=== PATIENT | male | born 1945 | race Caucasian/White ===

== ENCOUNTER 2017-08-24 08:15 | Inpatient (IN) | payer OTHER ==
[2017-08-24] VITALS (12 sets, daily range): BP systolic 115–147; BP diastolic 63–87
[~2017-08-24] VITALS: Ht 180.3 cm; Wt 88.5 kg
[~2017-08-24 08:15] MED LIST: AMLODIPINE BESY10 MG PO; HYZAAR 100-12.1 EACH PO; IBUPROFEN 400400 M2 PO; LIPITOR 20 MG T20 M1 PO; LODINE 200MG C200 M1 PO; METFORMIN HCL500 MG PO; NITROGLYCERIN0.4 MG SUBLING; OMEPRAZOLE 20 M20 MG PO; PIROXICAM20 MG PO; PLAVIX 75 MG TA75 M1 PO; VITAMIN B-12500 MCG PO
[2017-08-24 09:08] LABS: HEMATOCRIT 41.1 % (42.0-52.0); HEMOGLOBIN 14.7 gm/dL (14.0-18.0); MCH 33.5 pg (26.0-34.0); MCHC 35.8 g/dL (28.0-37.0); MCV 93.6 fL (80.0-100.0); MPV 7.9 fl. (7.2-11.1); RBC 4.39 mil/uL (4.50-6.00); RDW-CV 12.9 % (10.5-14.5); WBC 5.8 thou/uL (4.0-11.0)
[2017-08-24 09:24] LABS: INR 1.1; PROTIME 10.8 Seconds (9.20-11.50)
[2017-08-24 09:39] LABS: ANION GAP 9 mmol/L (7-16); BUN 16 mg/dL (7-18); CALCIUM 9.2 mg/dL (8.5-10.1); CHLORIDE 106 mmol/L (98-107); CO2 28 mmol/L (21-32); CREATININE 0.9 mg/dL (0.6-1.3); GLUCOSE 143 mg/dL (70-99); POTASSIUM 3.6 mmol/L (3.5-5.1); SODIUM 143 mmol/L (136-145)
[2017-08-24 09:44] LABS: ALBUMIN 3.8 g/dL (3.4-5.0); ALKALINE PHOSPHATASE 53 U/L (46-116); CHOLESTEROL 100 mg/dL (<200); HDL CHOLESTEROL 69 mg/dL (>40); LDL CHOLESTEROL 25 mg/dL (<100); SGOT 32 U/L (15-37); SGPT 47 U/L (30-65); TC:HDL 1.4 Ratio (Not establshd); TOTAL BILIRUBIN 1.1 mg/dL (<0.1-1.0); TOTAL PROTEIN 7.1 g/dL (6.4-8.2); TRIGLYCERIDE 33 mg/dL (<150); VLDL 7 mg/dL (<40)
[2017-08-24 09:47] LABS: SERUM ASSESSMENT Clear
--- NOTE | 2017-08-24 15:48 | EKG ---
[place] [address] ELECTROCARDIOGRAM REPORT Name: TOPHER HEDRICK Room: [address] IN .R.#: [id number] Admission: 08/24/17 Attend Phys: Miguel Temple MD, Discharge: Date of : 49 Report #: [id number] THIS REPORT FOR: //name// [facility] Test Date: 2017-08-24 Test Time: 08:57:46 Pat Name: TOPHER HEDRICK Department: Room: [facility] Gender: M Manager Quality Systems: [facility] : 1945 Requested By: Miguel Temple Order Number: [id number] Reading MD: Miguel Temple Measurements Intervals [place] Rate: 68 P: 19 MA: 182 QRS: 62 QRSD: 104 T: 57 QT: 401 QTc: 427 Interpretive Statements Sinus rhythm Probable left atrial enlargement Left ventricular hypertrophy Abnormal inferior Q waves Compared to ECG 06/16/2017 03:43:58 Left ventricular hypertrophy now present Inferior Q waves now present Q waves now present T-wave abnormality no longer present Electronically Signed On 08-24-2017 15:48:19 TRAWL NET MAKER by Miguel Temple [email or web address] <ELECTRONICALLY SIGNED> By: Miguel Temple MD, [facility] 08/24/17 1548 0857 0857 Miguel Temple MD, [facility] /EPI
--- NOTE | 2017-08-24 15:53 | EKG ---
[place] [address] ELECTROCARDIOGRAM REPORT Name: TOPHER HEDRICK Room: [address] ADM IN .R.#: [id number] Admission: 08/24/17 Attend Phys: Miguel Temple MD, Discharge: Date of : 49 Report #: [id number] THIS REPORT FOR: //name// [facility] Test Date: 2017-08-24 Test Time: 13:11:12 Pat Name: TOPHER HEDRICK Department: Room: [facility] Gender: M Professor Of Physics: [facility] : 1945 Requested By: Miguel Temple Order Number: [id number] Reading MD: Miguel Temple Measurements Intervals [place] Rate: 60 P: 42 WY: 191 QRS: 70 QRSD: 104 T: 73 QT: 432 QTc: 432 Interpretive Statements Sinus rhythm Probable left atrial enlargement Left ventricular hypertrophy Nonspecific T abnormalities, lateral leads Baseline wander in lead(s) V3 Compared to ECG 06/16/2017 03:43:58 Left ventricular hypertrophy now present T-wave abnormality still present Electronically Signed On 08-24-2017 15:53:44 COMMUNITY HEALTH EDUCATION COORDINATOR by Miguel Temple [email or web address] <ELECTRONICALLY SIGNED> By: Miguel Temple MD, FAC 08/24/17 1553 1311 1311 Miguel Temple MD, [facility] /EPI
--- NOTE | 2017-08-24 19:54 | NUR ---
PT ARRIVED TO ROOM 201 AT APPROX 1230 FROM STERILISATION TECHNICIAN. PT INSTRUCTED TO LAY FLAT, VSS, SR ON THE MONITOR. PT HAD LOVE IN PLACE, C/O PAIN FROM LOVE, REQUESTED IT REMOVED. LOVE REMOVED, PT ABLE TO URINE USING THE URINAL. PT UP AT APPROX 1800, RIGHT GROIN INTACT, NO BLEEDING OR HEAMTOMA. PT A/O X4, USING CALL LIGHT APPROPRILATY. REPORT GIVEN TO JULY CARY,
[2017-08-25] VITALS: BP 119/57
--- NOTE | 2017-08-25 02:27 | NUR ---
ASSUMED CARE OF PT AT 1900. PT IS ALERT AND ORIENTED. VSS. PERRLA. NO COMPLAINTS OF PAIN. STEADY GAIT. RIGHT GROIN SITE DRESSING IS CLEAN, DRY AND INTACT. NO SIGNS OR SYMPTOMS OF BLEEDING. PT IS IN SINUS RYTHM ON THE TELEMETRY. PT IS RESTING COMFORTABLY IN BED. RESPIRATIONS ARE EVEN AND NONLABORED. WILL CONTINUE TO MONITOR PT.
[2017-08-25 04:00] VITALS: BP 134/71
[2017-08-25 05:02] LABS: HEMATOCRIT 38.3 % (42.0-52.0); HEMOGLOBIN 13.4 gm/dL (14.0-18.0); MCH 33.2 pg (26.0-34.0); MCHC 35.1 g/dL (28.0-37.0); MCV 94.8 fL (80.0-100.0); MPV 7.8 fl. (7.2-11.1); RBC 4.04 mil/uL (4.50-6.00); RDW-CV 12.9 % (10.5-14.5); WBC 6.1 thou/uL (4.0-11.0)
[2017-08-25 05:43] LABS: CALCIUM 8.5 mg/dL (8.5-10.1); CREATININE 0.9 mg/dL (0.6-1.3); POTASSIUM 3.6 mmol/L (3.5-5.1); TROPONIN-I LEVEL 0.26 ng/mL (<0.06)
[2017-08-25 07:45] VITALS: BP 147/72
[2017-08-25 08:10] VITALS: BP 132/60
--- NOTE | 2017-08-25 09:17 | H ---
[address] [address] HISTORY AND PHYSICAL Name: RYLEYTOPHER L Room: [address] IN [facility]#: [id number] Admission: 08/24/17 Attend Phys: Miguel Temple MD, Discharge: Date of : 49 Report #: [id number] THIS REPORT FOR: //name// CC: Neal Temple DATE OF SERVICE: 08/24/2017 HISTORY OF PRESENT ILLNESS: The patient is a pleasant 72-year-old male with coronary artery disease, approximately 2 months status post stenting of the right coronary artery. He has experienced recurrent chest discomfort and had an abnormal stress test with inducible inferior ischemia. He underwent stenting of high grade proximal and heavily calcified right coronary stenosis in June. He was also noted to have approximately 80% mid LAD stenosis at that time, which was not approached in that setting. He has been continued on antiplatelet therapy with Plavix as well as amlodipine, atorvastatin, losartan/hydrochlorothiazide, metformin, nitroglycerin, omeprazole and Feldene. PAST MEDICAL HISTORY: Remarkable for left carotid stenosis, hypertension, hypercholesterolemia and non-insulin dependent diabetes. SOCIAL HISTORY: The patient is . He is a former smoker. FAMILY HISTORY: Remarkable for heart disease in his father. PHYSICAL EXAMINATION: GENERAL: Demonstrates not acutely distressed elderly male. VITAL SIGNS: Blood pressure is 150/70, pulse rate is 68 and respirations are 18 per minute. NECK: Jugular venous pressure is normal. CHEST EXAMINATION: Clear. CARDIAC EXAMINATION: Reveals normal first and second heart sounds, with a soft systolic murmur. ABDOMEN: Mildly obese. EXTREMITIES: Without edema with intact femoral, pedal and radial pulses. LABORATORY DATA: Electrocardiogram demonstrated sinus rhythm with minor interventricular conduction delay. IMPRESSION: 1. Recurrent unstable angina. 2. Abnormal stress test. 3. Multiv[place] [address] HISTORY AND PHYSICAL Name: TOPHER HEDRICK Angy Room: [address]#: [id number] Admission: 08/24/17 Attend Phys: Miguel Temple MD, Discharge: Date of : 49 Report #: [id number] 4. Left carotid disease. 5. Hypertension. 6. Hypercholesterolemia. 7. Type 2 diabetes. RECOMMENDATIONS: Given the aforementioned clinical scenario, I would recommend repeat cardiac catheterization with consideration of intervention to the right coronary artery and LAD after reviewing the cineangiograms. This has been discussed with the patient and family. <ELECTRONICALLY SIGNED> By: Miguel Temple MD, FACC 08/25/17 0917 1207 1243Jodanya Temple MD, FACC /nt
--- NOTE | 2017-08-25 10:00 | NUR ---
ASSUMED PT CARE 0730. PT A/O X'S 4. NO C/O PAIN. RIGHT GROIN CLEAN, DRY, INTACT, NO HEMATOMA. VSS. RIGHT GROIN SORE. PT UP AD UZIEL. PT ANXIOUS TO GO HOME.
--- NOTE | 2017-08-25 10:10 | CARD ---
[address] [address] CARDIAC CATH REPORT Name: RYLEYTOPHER Angy Room: [address] IN [facility]#: [id number] Admission: 08/24/17 Attend Phys: Miguel Temple MD, Discharge: Date of : 49 Report #: [id number] THIS REPORT FOR: //name// APPROVED REPORT Patient Details Patient Status: Out-Patient Room #: 201 The patient is a 72 year-old male Event Personnel Miguel Temple Personal Lines Appraiser, Elaine Breen RN Journeyman Level Acoustic Analyst, Janel Mckinney RTR Scrub, Chavez Kendall (R) Monitor Procedures Performed DARRIUS Place w/wo Plasty Single LAD DARRIUS Place w/wo Plasty Single RCA Indication Unstable angina , Positive stress test Risk Factors Hypercholesterolemia, Hypertension Previous Procedures/Diagnoses Previous PCI Admission/Lab Medications/Medications given during procedure Aspirin, Platelet Aff. Inhib., Angiomax bolus and infusion Procedure Narrative The patient was brought electively to the Cardiac Catheterization Laboratory and was prepped and draped in a sterile manner. The right femoral was infiltrated with 1% Lidocaine subcutaneous anesthesia. A [place] 6 FR sheath was inserted into the Right Femoral Artery. Coronary angiography was performed using coronary diagnostic catheters. The right coronary system was accessed and visualized with a Diagnostic JR4 catheter. The left coronary system was accessed and visualized with a Diagnostic JL4 catheter. Left ventricular/Aortic Valve gradient assessed via catheter pullback. Pre-demployment femoral angiogram was performed . Closure device was deployed with a Fr Angioseal. The patient tolerated the procedure well and there were no complications associated with the procedure. [place] [address] CARDIAC CATH REPORT Name: TOPHER HEDRICK Room: [address]#: [id number] Admission: 08/24/17 Attend Phys: Miguel Temple MD, Discharge: Date of : 49 Report #: [id number] Intraoperative Conscious Sedation Sedation start time: 9:59 Case end Time: 11:48 Fentanyl 200 mcg Versed 6.0 mg Fluoro Time: 32.7 minutes Dose: DAP [id number] cGycm2 3449 mGy Contrast Type and Amount: Visipaque 450 ml Diagnostic Cath Left Main 0% narrowing LAD 80% mid LAD calcified stenosis Circumflex 30% distal narrowing, this being a nondominant vessel Right Coronary Dominant vessel with a patent mid right coronary stent followed by an area of lucency suggesting thrombus with 75% narrowing Left Ventriculography Left Ventriculography was not performed. Hemodynamics The aortic pressure is 125/65 mmHg with a mean of 92 mmHg. The left ventricular pressure is 119/3 mmHg with a mean of mmHg. The left ventricular end diastolic pressure is 7 mmHg. There was no gradient across the aortic valve upon pullback. PCI Technique Lesion Anticoagulation was achieved with Angiomax. Patient was preloaded with Angiomax IV 13.5 ml. Percutaneous coronary intervention was performed on the mid right coronary artery. The lesion stenosis prior to intervention was 75% with DEL 3 flow. A 6FR XBRCA Guide Catheter was used to engage the ostium. A IG: ProwaterFlex 180CM Interventional Guidewire was used to cross the lesion. BALLOON DILATION A Balloon catheter Trek RX 2.5 X 12 was inserted and inflated up to 16.00atm for 15seconds. STENT DEPLOYMENT A drug-eluting stent Xience Alpine RX 3.0X18 was inserted and inflated up to 16atm for 15seconds. POST STENT DEPLOYMENT BALLOON DILATION A Balloon catheter NC Trek RX 3.0 X 8 was inserted and inflated up to 20atm [place] 15[place]. [place] [address] CARDIAC CATH REPORT Name: TOPHER HEDRICK Room: [address]#: [id number] Admission: 08/24/17 Attend Phys: Miguel Temple MD, Discharge: Date of : 49 Report #: [id number] Final angiography reveals 10 % stenosis with DEL 3 flow. COMMENTS There was local thrombus at the site prior to the intervention; this was no longer evidenced after the intervention BALLOON DILATION A Balloon catheter was inserted and inflated up to 14.00atm for 12seconds. Additional Inflation: 16.00atm for 14seconds. Additional Inflation: 16.00atm for 14seconds. STENT DEPLOYMENT A drug-eluting stent Xience Alpine RX 3.0X18 was inserted and inflated up to 12.00atm for 17seconds. Additional Inflation: 15.00atm for 14seconds. Additional Inflation: 16.00atm for 16seconds. POST STENT DEPLOYMENT BALLOON DILATION A Balloon catheter NC Trek RX 3.0 X 8 was inserted and inflated up to 18.00atm for 14seconds. Additional Inflation: 18.00atm for 12seconds. Additional Inflation: 20.00atm for 13seconds. PCI Technique Lesion 2 Percutaneous Coronary Intervention was performed on the mid left anterior descending artery segment. Patient was preloaded with Angiomax IV 13.5 ml. Percutaneous coronary intervention was performed on the mid left anterior descending artery segment. The lesion stenosis prior to intervention was 80% with DEL 3 flow. A 6FR XB 3.5 100CM Guide Catheter was used to engage the ostium. A IG: ProwaterFlex 180CM Interventional Guidewire was used to cross the lesion. Balloon Dilation A Balloon catheter Trek RX 2.5 X 12 was inserted and inflated up to 12.00atm for 17seconds. Additional Inflation: 16.00atm for 17seconds. Stent Deployment A drug-eluting stent Xience Alpine RX 2.75X15 was inserted and inflated up to 10.00atm for 15seconds. Additional Inflation: 14atm for 12seconds. Final angiography reveals 0 % stenosis with DEL [address] [address] CARDIAC CATH REPORT Name: TOPHER HEDRICK Room: [address] IN ..#: [id number] Admission: 08/24/17 Attend Phys: Miguel Temple MD, Discharge: Date of : 49 Report #: [id number] Conclusion #1 significant coronary artery disease characterized by the following: A 80% calcified mid LAD stenosis, B 30% narrowing of the distal portion of the nondominant circumflex, C dominant right coronary artery with widely patent mid right coronary stent and followed by an area of lucency suggesting thrombus with 75% narrowing #2 normal left-sided hemodynamics study #3 successful percutaneous coronary intervention deploying a drug-eluting stent at site of 80% calcified mid LAD stenosis with 0% residual narrowing and DEL-3 flow the distal vessel, #4 successful percutaneous coronary intervention of the site of 75% mid right coronary stenosis with local thrombus at the site with 10% residual narrowing following stent deployment and DEL-3 flow the distal vessel no residual thrombus. Recommendations Cardiac Risk Reduction Program Aggressive Medical Therapy Medications Administered Aspirin (any) Prasugrel <ELECTRONICALLY SIGNED> By: Miguel Temple MD, FACC 08/25/17 1010 1010 1010Miguel Temple MD, FACC /INF
[2017-08-25 10:30] VITALS: BP 147/72
[2017-08-25] MEDS ORDERED: EFFIENT10 MG PO (11:12)
--- NOTE | 2017-08-25 12:30 | NUR ---
RECEIVED DISCHARGE ORDERS. IV AND GLASS SELECTOR DC'D. PT EDUCATED ON F/U APPOINTMENTS WITH CARDIOLOGY. PT CONCERNED WITH COSE OF ELIQUIS. CM REFERRED AND GAVE PT NIKI FORM TO HELP WITH PAY. PT REPORTS WILL TRY TO GET MED THROUGH PCP TO GO THROUGH MAIL IN ORDER PHARMACY. PT EDUCATED ON NEW MEDICATION. CARE NOTES PRINTED AND GIVEN TO PT.
--- NOTE | 2017-08-25 14:46 | EKG ---
[place] [address] ELECTROCARDIOGRAM REPORT Name: TOPHER HEDRICK Room: [address] IN [facility]#: [id number] Admission: 08/24/17 Attend Phys: Miguel Temple MD, Discharge: 08/25/17 Date of : 49 Report #: [id number] THIS REPORT FOR: //name// [facility] Test Date: 2017-08-25 Test Time: 08:43:32 Pat Name: TOPHER HEDRICK Department: Room: [facility] Gender: M Business Case Analyst: : 1945 Requested By: Miguel Temple Order Number: [id number] Reading MD: Zeyad Luna Measurements Intervals [place] Rate: 72 P: 52 WY: 175 QRS: 84 QRSD: 104 T: 72 QT: 398 QTc: 436 Interpretive Statements Sinus rhythm Borderline right axis deviation Probable left ventricular hypertrophy Nonspecific T abnormalities, lateral leads Baseline wander in lead(s) II,aVR,aVF,V2 Compared to ECG 08/24/2017 13:11:12 No significant changes Electronically Signed On 08-25-2017 14:45:56 DIRECTOR SMB SALES by Zeyad Luna [email or web address] <ELECTRONICALLY SIGNED> By: Zeyad Luna MD, FAC 08/25/17 1445 0843 0843 Zeyad Luna MD, FAC /EPI
--- NOTE | 2017-09-18 12:57 | D ---
[address] [address] DISCHARGE SUMMARY Name: TOPHER HEDRICK Room: [address] IN M.R.#: [id number] Admission: 08/24/17 Attend Phys: Miguel Temple MD, Discharge: 08/25/17 Date of : 49 Report #: [id number] THIS REPORT FOR: //name// CC: Neal Temple DATE OF SERVICE: 08/25/2017 FINAL DISCHARGE DIAGNOSES: 1. Unstable angina. 2. Abnormal nuclear stress test. 3. Coronary artery disease. 4. Status post prior percutaneous coronary intervention to the right coronary artery and percutaneous coronary intervention to the left anterior descending and mid right coronary artery on 08/24/2017. 5. Left carotid stenosis. 6. Hypertension. 7. Hyperlipoproteinemia. 8. Mild type 2 diabetes. PROCEDURES: 08/24/2017-left heart catheterization, selective coronary arteriography and percutaneous coronary intervention with deployment of drug-eluting stent at site of 80% calcified mid LAD stenosis and placement of a drug-eluting stent at the site of 75% mid right coronary artery stenosis with minimal thrombus noted at the edge of a previously deployed stent. The patient is a 72-year-old male with coronary artery disease, status post prior percutaneous coronary interventions. He presented with unstable angina. There is underlying hypertension and hyperlipoproteinemia. He had undergone a prior stenting of the right coronary artery. Recent stress test suggested a modest inducible ischemia. Given this data, I elected to proceed with recatheterization on 08/24/2017, which revealed 80% calcified mid LAD stenosis with 75% mid right coronary artery stenosis beyond the previously deployed stent with suggestion of thrombus just distal to the stent. I deployed one drug-eluting stent in the mid LAD and one in the mid right coronary artery with a 10% residual narrowing of the right coronary artery and 0% of the LAD with DEL 3 flow to both distal circulations. There was an inconsequential increase in troponin to 0.26 post procedurally. Hemoglobin was 13.4, white blood cell count 6100 with 166,000 platelets. Sodium 142, potassium 3.6, BUN 12, and creatinine 0.9. The patient ambulated in the hallways without difficulty and there was good hemostasis at the right femoral site of catheterization. The patient was discharged to home in stable condition on 08/25/2017, [place] [address] DISCHARGE SUMMARY Name: TOPHER HEDRICK Room: [address]#: [id number] Admission: 08/24/17 Attend Phys: Miguel Temple MD, Discharge: 08/25/17 Date of : 49 Report #: [id number] following medications: Amlodipine 10 mg daily, atorvastatin 20 mg daily, cyanocobalamin 500 mcg daily, losartan/hydrochlorothiazide 100/12.5 one tablet daily, metformin 500 mg b.i.d. to be resumed on 08/27/2017, piroxicam 20 mg daily, and prasugrel or Effient 10 mg daily with a 60 mg dose given periprocedurally. Additional medicines include Lodine 200 mg on a p.r.n. basis, ibuprofen 400 mg on a p.r.n. basis for arthritic discomfort, and p.r.n. sublingual nitroglycerin. The patient is scheduled to return to see my nurse practitioner, Marija Pleitez on 09/01/2017, at 1400 and myself on 09/26/2017, at 11:20. He is discharged to home in stable condition on the aforementioned medications with followup as iterated above. <ELECTRONICALLY SIGNED> By: Miguel Temple MD, FACC 09/18/17 1257 0909 1031Jodanya Temple MD, FACC /nt
== END 2017-08-25 13:35 | disposition home or self-care (01) | DRG 247 ==
LOC: M.CL 08:15 → M.TBA-CV 12:12 → M.2W 12:12
PROVIDERS: ADMIT Internal Medicine
PROC: B211YZZ Fluoroscopy of Multiple Coronary Arteries using Other Contrast (ICD-10-PCS; principal; 2017-08-25)
PROC: 027135Z Dilation of Coronary Artery, Two Arteries with Two Drug-eluting Intraluminal Devices, Percutaneous Approach (ICD-10-PCS; principal; 2017-08-25)
PROC: 4A023N7 Measurement of Cardiac Sampling and Pressure, Left Heart, Percutaneous Approach (ICD-10-PCS; principal; 2017-08-25)
DX: I25.110 Atherosclerotic heart disease of native coronary artery with unstable angina pectoris (principal); I65.22 Occlusion and stenosis of left carotid artery; I10 Essential (primary) hypertension; E78.5 Hyperlipidemia, unspecified; E11.9 Type 2 diabetes mellitus without complications; Z82.49 Family history of ischemic heart disease and other diseases of the circulatory system; Z87.891 Personal history of nicotine dependence

== ENCOUNTER 2018-09-28 08:06 | Observation (INO) | payer OTHER ==
[2018-09-28] VITALS (22 sets, daily range): BP systolic 116–144; BP diastolic 67–88
[~2018-09-28] VITALS: Ht 180.3 cm; Wt 90.7 kg
[~2018-09-28 08:06] MED LIST changes: +EFFIENT10 MG PO
[2018-09-28 08:40] LABS: HEMATOCRIT 44.1 % (42.0-52.0); HEMOGLOBIN 15.4 gm/dL (14.0-18.0); MCH 32.7 pg (26.0-34.0); MCV 93.5 fL (80.0-100.0); MPV 7.6 fl. (7.2-11.1); RBC 4.72 mil/uL (4.50-6.00); RDW-CV 12.7 % (10.5-14.5); WBC 6.5 thou/uL (4.0-11.0)
[2018-09-28 08:55] LABS: ANION GAP 10 mmol/L (7-16); APTT 26.5 Seconds (25.0-31.3); BUN 12 mg/dL (7-18); CALCIUM 9.6 mg/dL (8.5-10.1); CHLORIDE 102 mmol/L (98-107); CO2 29 mmol/L (21-32); CREATININE 1.1 mg/dL (0.6-1.3); GLUCOSE 135 mg/dL (70-99); POTASSIUM 3.8 mmol/L (3.5-5.1); PROTIME 10.5 Seconds (9.20-11.50); SODIUM 141 mmol/L (136-145)
[2018-09-28 08:59] LABS: ALKALINE PHOSPHATASE 59 U/L (46-116); CHOLESTEROL 109 mg/dL (<200); HDL CHOLESTEROL 75 mg/dL (>40); LDL CHOLESTEROL 17 mg/dL (<100); SGOT 38 U/L (15-37); SGPT 58 U/L (30-65); TC:HDL 1.5 Ratio (Not establshd); TOTAL BILIRUBIN 1.2 mg/dL (<0.1-1.0); TOTAL PROTEIN 7.5 g/dL (6.4-8.2); TRIGLYCERIDE 85 mg/dL (<150); VLDL 17 mg/dL (<40)
[2018-09-28 09:00] LABS: SERUM ASSESSMENT Clear
[2018-09-28] MEDS ORDERED: METFORMIN HCL500 MG PO (09:16)
[2018-09-28] MEDS ORDERED: GLUCOPHAGE1000 MG PO (09:17)
[2018-09-28] MEDS ORDERED: COQ-10100 MG PO (09:18)
[2018-09-28] MEDS ORDERED: PRILOSEC 20 MG20 MG PO (09:19)
--- NOTE | 2018-09-28 15:36 | EKG ---
[place] [address] ELECTROCARDIOGRAM REPORT Name: TOPHER HEDRICK Room: [address] M.R.#: [id number] Admission: 09/28/18 Attend Phys: Miguel Temple MD, Discharge: Date of : 49 Report #: [id number] THIS REPORT FOR: //name// [facility] Test Date: 2018-09-28 Test Time: 09:14:23 Pat Name: TOPHER HEDRICK Department: Room: [facility] Gender: M Customs Import Specialist: : 1945 Requested By: Miguel Temple Order Number: [id number] Jaren MD: Miguel Temple Measurements Intervals [place] Rate: 73 P: 15 ND: 172 QRS: 76 QRSD: 101 T: 45 QT: 401 QTc: 442 Interpretive Statements Sinus rhythm Probable left atrial enlargement Compared to ECG 08/25/2017 08:43:32 T-wave abnormality no longer present Electronically Signed On 09-28-2018 15:35:49 COST MANAGER by Miguel Temple [email or web address] <ELECTRONICALLY SIGNED> By: Miguel Temple MD, [facility] 09/28/18 1535 3 3 Miguel Temple MD, FAC /EPI
--- NOTE | 2018-09-28 15:38 | EKG ---
[place] [address] ELECTROCARDIOGRAM REPORT Name: TOPHER HEDRICK Room: [address] M.R.#: [id number] Admission: 09/28/18 Attend Phys: Miguel Temple MD, Discharge: Date of : 49 Report #: [id number] THIS REPORT FOR: //name// [facility] Test Date: 2018-09-28 Test Time: 12:04:38 Pat Name: TOPHER HEDRICK Department: Room: [facility] Gender: M Debt Collector: : 1945 Requested By: Miguel Temple Order Number: [id number] Jaren MD: Miguel Temple Measurements Intervals [place] Rate: 66 P: 35 CT: 178 QRS: 67 QRSD: 103 T: 80 QT: 408 QTc: 428 Interpretive Statements Sinus rhythm Probable left atrial enlargement Left ventricular hypertrophy Compared to ECG 08/25/2017 08:43:32 T-wave abnormality no longer present Electronically Signed On 09-28-2018 15:38:26 MAMMOGRAPHY TECH by Miguel Temple [email or web address] <ELECTRONICALLY SIGNED> By: Miguel Temple MD, [facility] 09/28/18 1538 1204 1204 Miguel Temple MD, [facility] /EPI
--- NOTE | 2018-09-28 16:04 | CARD ---
[address] [address] CARDIAC CATH REPORT Name: TOPHER HEDRICK Room: [address] Melanie M.RScarlet#: [id number] Admission: 09/28/18 Attend Phys: Miguel Temple MD, Discharge: Date of : 49 Report #: [id number] THIS REPORT FOR: //name// APPROVED REPORT Study performed: 09/28/2018 09:31:21 Patient Details Patient Status: OP Room #: The patient is a 73 year-old male Event Personnel Miguel Temple Sales Attendant, Babita Avina RN Gate Tender, Carmen Ahumada Monitor, Darrel Schreiber Scrub Procedures Performed Art Access - R femoral artery* , [facility] [id number] [facility] w/wo Plasty Single RCA [id number] , Left Ventriculogram Indication Unstable angina Risk Factors Hypercholesterolemia, Hypertension, Diabetes Previous Procedures/Diagnoses Previous PCI Admission/Lab Medications/Medications given during procedure Platelet Aff. Inhib., Angiomax bolus and infusion Procedure Narrative The patient was brought electively to the Cardiac Catheterization Laboratory and was prepped and draped in a sterile manner. The right femoral was infiltrated with 2% Lidocaine subcutaneous anesthesia. A [place] 6 FR sheath was inserted into the right femoral artery. Coronary angiography was performed using coronary diagnostic catheters. The right coronary system was accessed and visualized with a 6fr JR 4 catheter. The left coronary system was accessed and visualized with a 6fr JL 4 catheter. The left ventricle was accessed and visualized with a 6fr Pigtail catheter. Left ventricular/Aortic Valve gradient assessed via catheter pullback. Left ventriculogram was performed in NARANJO projection. Pre-[place] [address] CARDIAC CATH REPORT Name: TOPHER HEDRICK Room: [address]#: [id number] Admission: 09/28/18 Attend Phys: Miguel Temple MD, Discharge: Date of : 49 Report #: [id number] was performed . Closure device was deployed with a 6 Fr Angioseal STS 6Fr. The patient tolerated the procedure well and there were no complications associated with the procedure. There was no hematoma. Intraoperative Conscious Sedation Sedation start time: 10:02 Case end Time: 11:20 Fentanyl 50 mcg Versed 4 mg Fluoro Time: 23.4 minutes Dose: DAP 277099 cGycm2 2499.46 mGy Contrast Type and Amount: Visipaque 300 ml Coronary Angiography The patient's coronary anatomy is right dominant. Diagnostic Cath Left Main 0% narrowing LAD 30% proximal narrowing with widely patent mid LAD stent Circumflex 30% proximal and distal circumflex narrowings Right Coronary 90% mid right coronary artery in-stent restenosis with 50% narrowing of the midportion of the posterior descending branch Left Ventriculography The left ventricle is normal in size with normal contractility. The left ventricular ejection fraction is estimated to be 65%. Left ventricular wall motion abnormalities are not present. There is no mitral insufficiency. Hemodynamics The aortic pressure is 121/54 mmHg with a mean of mmHg. The left ventricular pressure is 112/8 mmHg with a mean of mmHg. The left ventricular end diastolic pressure is 6 mmHg. There was no gradient across the aortic valve upon pullback. Pullback from the left ventricle to the aorta revealed no gradient across the aortic valve. PCI Technique Lesion Anticoagulation was achieved with Angiomax. Patient was preloaded with Angiomax IV 15.5 mg per kg. Percutaneous coronary intervention was performed on the mid right coronary artery. The lesion stenosis prior to intervention was 90% with DEL 3 flow. A 6FR XBRCA Guide Catheter was used to engage the RCA ostium. A IG: [facility] [address] [address] CARDIAC CATH REPORT Name: TOPHER HEDRICK Room: [address]#: [id number] Admission: 09/28/18 Attend Phys: Miguel Temple MD, Discharge: Date of : 49 Report #: [id number] Interventional Guidewire was used to cross the lesion. BALLOON DILATION A Balloon catheter Mini Trek RX 1.5 X 12 was inserted and inflated up to 16.00atm for 14seconds. Additional Inflation: 18.00atm for 14seconds. STENT DEPLOYMENT A drug-eluting stent Bruce RX Stent 2.5X15mm was inserted and inflated up to 16atm for 15seconds. POST STENT DEPLOYMENT BALLOON DILATION A Balloon catheter NC Trek RX 3.0 X 12 was inserted and inflated up to 18atm for 10seconds. Final angiography reveals 10 % stenosis with DEL 3 flow. COMMENTS Intervention was complex by virtue of marked calcification and decreased compliance throughout the right coronary artery requiring significant lesion preparation and multiple wires including a cali wire for stent positioning BALLOON DILATION A Balloon catheter was inserted and inflated up to 18.00atm for 19seconds. Additional Inflation: 18.00atm for 15seconds. PCI Technique Lesion Percutaneous coronary intervention was performed on the mid right coronary artery. BALLOON DILATION A Balloon catheter NC Trek RX 2.5 X 12 was inserted and inflated up to 18.00atm for 13seconds. Additional Inflation: 20.00atm for 11seconds. Additional Inflation: 22.00atm for 11seconds. STENT DEPLOYMENT A drug-eluting stent [place] RX Stent 2.5X15mm was inserted and inflated up to 14.00atm for 14seconds. Additional Inflation: 17.00atm for 12seconds. POST STENT DEPLOYMENT BALLOON DILATION A Balloon catheter NC Trek RX 2.75 X 12 was [place] [address] CARDIAC CATH REPORT Name: TOPHER HEDRICK Room: [address] Melanie Alvarez#: [id number] Admission: 09/28/18 Attend Phys: Miguel Temple MD, Discharge: Date of : 49 Report #: [id number] to 16.00atm for 15seconds. Additional Inflation: 20.00atm for 14seconds. PCI Technique Lesion Percutaneous coronary intervention was performed on the mid right coronary artery. POST STENT DEPLOYMENT BALLOON DILATION A Balloon catheter NC Trek RX 3.0 X 12 was inserted and inflated up to 16.00atm for 15seconds. Additional Inflation: 18.00atm for 12seconds. Conclusion #1 significant coronary artery disease characterized by the following A 30% proximal LAD narrowing with widely patent mid LAD stent B 30% proximal and distal circumflex narrowings C dominant right coronary artery with 90% mid vessel in-stent restenosis and 50% posterior descending branch narrowing #2 normal left ventricular systolic function, estimate ejection fraction being 65% #3 normal left-sided hemodynamics study #4 successful percutaneous coronary intervention with deployment of drug-eluting stent at site of 90% mid right coronary in-stent restenosis with 10% residual narrowing and DEL-3 flow the distal vessel Recommendations Cardiac Risk Reduction Program Aggressive Medical Therapy Medications Administered Prasugrel Diagnostic Cath Approved by: Miguel Temple MD Date/Time: 09/28/2018 16:00:17 <ELECTRONICALLY SIGNED> By: Miguel Temple MD, [facility] 09/28/18 1604 1604 1604Miguel Temple MD, FACC /INF
[2018-09-29] VITALS: BP 126/59
[2018-09-29 04:00] VITALS: BP 127/70
[2018-09-29 06:15] LABS: HEMATOCRIT 39.6 % (42.0-52.0); HEMOGLOBIN 14.1 gm/dL (14.0-18.0); MCH 33.1 pg (26.0-34.0); MCHC 35.6 g/dL (28.0-37.0); MCV 92.9 fL (80.0-100.0); MPV 7.9 fl. (7.2-11.1); RBC 4.27 mil/uL (4.50-6.00); RDW-CV 12.9 % (10.5-14.5); WBC 6.5 thou/uL (4.0-11.0)
[2018-09-29 06:43] LABS: ALBUMIN 3.3 g/dL (3.4-5.0); CALCIUM 8.7 mg/dL (8.5-10.1); POTASSIUM 3.6 mmol/L (3.5-5.1); TOTAL BILIRUBIN 0.9 mg/dL (<0.1-1.0); TOTAL PROTEIN 6.3 g/dL (6.4-8.2); TROPONIN-I LEVEL 0.36 ng/mL (<0.06)
[2018-09-29 09:00] VITALS: BP 145/70
[2018-09-29 10:23] VITALS: BP 136/67
[2018-09-29 11:18] VITALS: BP 136/67
--- NOTE | 2018-09-30 15:50 | D ---
[address] [address] DISCHARGE SUMMARY Name: TOPHER HEDRICK Room: [address] Melanie Alvarez#: [id number] Admission: 09/28/18 Attend Phys: Miguel Temple MD, Discharge: 09/29/18 Date of : 49 Report #: [id number] THIS REPORT FOR: //name// CC: Neal Temple DATE OF SERVICE: 09/29/2018 FINAL DISCHARGE DIAGNOSES: 1. Unstable angina. 2. Coronary artery disease. 3. Status post percutaneous coronary intervention to the right coronary artery. 4. Hypertension. 5. Hyperlipidemia. 6. Type 2 diabetes. PROCEDURES: On 09/28/2018 -- left heart catheterization, left ventriculography, selective coronary arteriography, and percutaneous coronary intervention with deployment of drug-eluting stent in the mid right coronary artery. The patient is a pleasant and active 73-year-old male with complex coronary artery disease, status post prior stenting of the LAD and right coronary artery. He has underlying hypertension, hyperlipidemia and type 2 diabetes. Recently, and specifically over the last 6-8 weeks, he has noted increased dyspnea with exertion, his usual anginal equivalent. This has been present with decreasing activity levels over the last 6 weeks. Given the clinical history and the remarkable risk factor for profile with known coronary artery disease, elected to proceed with the catheterization on 09/28/2018. That study revealed widely patent LAD stent with 90% mid right coronary in-stent restenosis. There was modest disease of the circumflex and 0% left main coronary narrowing. Given this data, I elected to proceed with a complex intervention to the in-stent restenotic lesion of the mid right coronary artery with significant lesion preparation and deployment of a 2.5 x 15 mm Bruce drug-eluting stent in mid right coronary artery, post-dilated to 3.0 mm with 10% residual narrowing and DEL 3 flow of the distal vessel. He did well post-procedurally with no recurrent chest pain and good hemostasis at the right femoral site of catheterization. Laboratory on 09/29/2018 revealed a sodium 140, potassium 3.6, BUN 9, creatinine 1.0. Glucose 120, hemoglobin 14.1, white blood cell count 6500 with 155,000 platelets. Cholesterol 109, HDL 75, LDL 70 and triglycerides 85 [place] [address] DISCHARGE SUMMARY Name: TPOHER HEDRICK Room: [address] Melanie Alvarez#: [id number] Admission: 09/28/18 Attend Phys: Miguel Temple MD, Discharge: 09/29/18 Date of : 49 Report #: [id number] Troponin мария inconsequentially to 0.36. Left ventricular ejection fraction was normal, estimated ejection fraction of 65%. The patient ambulated in the hallways without difficulty. He was discharged to home on the following medications: Amlodipine 10 mg daily, atorvastatin 20 mg at bedtime, cyanocobalamin 500 mcg daily, losartan/hydrochlorothiazide 100/12.5 daily, metformin 1000 mg b.i.d. with meals to be resumed on 10/01/2018, omeprazole 20 mg daily, prasugrel 10 mg daily and Coenzyme Q 200 mg daily. He also has p.r.n. sublingual nitroglycerin to be utilized if required. He is aspirin intolerant and thus is discharged on single agent potent antiplatelet therapy. I will plan to see him in the office on 10/29/2018 at 10:40 at the [facility] office. Thus, the patient is discharged to home in stable condition on the aforementioned medications with followup as iterated above. <ELECTRONICALLY SIGNED> By: Miguel Temple MD, FACC 09/30/18 1550 1011 [id number] Tmeple MD, FACC /nt
--- NOTE | 2018-09-30 16:33 | EKG ---
[place] [address] ELECTROCARDIOGRAM REPORT Name: TOPHER HEDRICK Room: [address] M.#: [id number] Admission: 09/28/18 Attend Phys: Miguel Temple MD, Discharge: 09/29/18 Date of : 49 Report #: [id number] THIS REPORT FOR: //name// [facility] Test Date: 2018-09-29 Test Time: 03:28:48 Pat Name: TOPHER HEDRICK Department: Room: [facility] Gender: Shingles Roofer Helper: SydnieFScarlet : 1945 Requested By: Miguel Temple Order Number: [id number] Reading MD: Zeyad Luna Measurements Intervals [place] Rate: 75 P: 27 NM: 171 QRS: 68 QRSD: 101 T: 81 QT: 403 QTc: 451 Interpretive Statements Sinus rhythm Compared to ECG 09/28/2018 12:04:38 Left ventricular hypertrophy no longer present Electronically Signed On 09-30-2018 16:33:14 SPOOL CARRIER by Zeyad Luna [email or web address] <ELECTRONICALLY SIGNED> By: Zeyad Luna MD, [facility] 09/30/18 1633 [id number] [id number] Zeyad Luna MD, FAC /EPI
== END 2018-09-29 11:40 | disposition home or self-care (01) ==
LOC: M.CL 08:06 → M.2W 11:38 → M.TBA-CV 11:38 → M.2W 14:03
PROVIDERS: ADMIT Internal Medicine
DX: I25.110 Atherosclerotic heart disease of native coronary artery with unstable angina pectoris (principal); I10 Essential (primary) hypertension; E78.5 Hyperlipidemia, unspecified; E11.9 Type 2 diabetes mellitus without complications; I65.23 Occlusion and stenosis of bilateral carotid arteries; Z95.5 Presence of coronary angioplasty implant and graft; Z87.891 Personal history of nicotine dependence; Z79.84 Long term (current) use of oral hypoglycemic drugs; Z79.899 Other long term (current) drug therapy

== ENCOUNTER → 2020-11-16 | Outpatient (CLI) | payer OTHER ==
[~2020-11-16] MED LIST changes: +COQ-10100 MG PO; +FELDENE20 MG PO; +FIBERSOURCE H1500 ML PO; +GLUCOPHAGE1000 MG PO; +PLAVIX 75 MG TA75 MG PO; +PRILOSEC 20 MG20 MG PO
--- NOTE | 2020-11-17 15:51 | CARDNUC ---
[place] [address] CARDIAC NUCLEAR IMAGING REPORT Name: TOPHER HEDRICK Room: [facility]#: [id number] Admission: 11/16/20 Attend Phys: Srinivasan Velez Discharge: Date of : 49 Date of Service: 11/17/20 1551 Report #: [id number] THIS REPORT FOR: cc: Neal Castaneda Bradley L. DO Liston, Michael J. MD [facility] ~ APPROVED REPORT Study performed: 11/16/2020 14:18:56 Exam: Nuclear Stress Test Indication: Dyspnea, chest discomfort. Patient Location: Out-Patient Stress Tech: Lashon Camp Stress Nurse: Dinh Traylor Tech:RODERICK Murphy Ht: 5 ft 10 in Wt: 190 lbs BSA: 2.04 m2 BMI: 27.25 Medical History Medical History: Angina, dyspnea, hypercholesteremia, bilateral carotid stenosis, CAD s/p stent, Diabetic Noninsulin, HTN, Hyperlipidemia, past smoker, gastric discomfort. Medications: Amlodipine, Atorvastatin, Hyzaar, Clopidogrel, Metformin, NTG. Allergies: ASA, Codeine. Cardiac Risk Factors: Age, Diabetes (non-insulin), FHX of CAD, HTN, Hyperlipidemia, SOB, Past Smoker. Previous Cardiac Procedures: PCI Pretest Chest Pain Characteristics: No chest pain Exercise History: Indeterminate Physical Disabilities: Slow gait, rib pain. Meds Held (24 hrs): NTG. Stress Test Details Stress Test: Pharmacologic stress was paired with low level exercise. Reason for pharmacologic stress test: Slow gait, rib pain.. HR Resting HR: 68 bpm Max Heart Rate (APMHR): 147 bpm Max HR Achieved: 138 bpm Target HR (85% APMHR): 124 bpm % of APMHR: 93 [place] [address] CARDIAC NUCLEAR IMAGING REPORT Name: RYLEYTOPHER THORNE Room: [facility]#: [id number] Admission: 11/16/20 Attend Phys: Srinivasan Velez Discharge: Date of : 49 Date of Service: 11/17/20 1551 Report #: [id number] Recovery HR: 90 bpm BP Resting BP: 155/72 mmHg Max BP: 215/83 mmHg ECG Resting ECG: Sinus rhythm with left ventricular hypertrophy Stress ECG: Sinus tachycardia with left ventricular hypertrophy ST Change: Downsloping ST depression Maximum ST Deviation: 2 mm Arrhythmia: None Recovery ECG: Sinus rhythm with left ventricular hypertrophy Recovery ST Change: Downsloping ST depression Recovery ST Deviation: 2 mm Recovery Arrhythmia: None Clinical Reason for Termination: Completed protocol Stress Symptoms: Dyspnea, upper gastric pain, patient arrived with headache. Exercise duration: 4 min 00 sec Exercise capacity: 2.30 METs The patient reported upper epigastric discomfort with walking Lexiscan protocol. Nurse Comments A 75 year old male presented for a walking Lexiscan Nuclear Stress Test. Test well tolerated. Recovery unremarkable. Patient was stable and stated he felt good when escorted to Nuclear Medicine for imaging. Stress ECG Conclusion The baseline twelve-lead EKG shows sinus rhythm. There is voltage criteria for left ventricular hypertrophy. ST segments appear relatively normal. EKGs obtained during and post Lexiscan walking protocol show sinus rhythm as sinus tachycardia with [address] segment depressions noted in the inferolateral leads that persisted 8 minutes into recovery. NM EXAM: Myocardial Perfusion REST/STRESS Imaging Protocol: Rest Tc-99m/Stress Tc-99m 1 [place] [address] CARDIAC NUCLEAR IMAGING REPORT Name: TOPHER HEDRICK Room: [facility]#: [id number] Admission: 11/16/20 Attend Phys: Srinivasan Velez Discharge: Date of : 49 Date of Service: 11/17/20 1551 Report #: [id number] Resting Data Rest SPECT myocardial perfusion imaging was performed in supine position 30 minutes following the intravenous injection of 8.5 mCi of Tc-99m Sestamibi. Time of rest injection: 1305 Date: 11/16/2020 The images were gated to evaluate regional wall motion and calculate left ventricular ejection fraction. Administration Route: IV Administration Site: Right Hand Pharmacologic Stress Pharmacologic stress test was performed by injecting Regadenoson 0.4 mg IV push followed by the intravenous injection of 36.0 mCi of Tc-99m Sestamibi. Time of stress injection: 1430 Date: 11/16/2020 Administration Route: IV Administration Site: Right Hand Gated Stress SPECT was performed 40 minutes after stress injection. The images were gated to evaluate regional wall motion and calculate left ventricular ejection fraction. Prone imaging was performed. Study Quality Study: Good Artifact: Mild Diaphragmatic artifact Study Data At rest, the left ventricular ejection fraction was 76%.. Post stress, the left ventricular ejection was 76%.. TID = 0.93. Perfusion Perfusion images obtained in the supine position at rest show relatively uniform uptake of the radioisotope throughout the myocardium. Post-rest perfusion images obtained in the supine position show photopenia in the basal to mid inferior wall. Post-rest prone imaging shows no defect in this region. This would be suggestive of diaphragmatic attenuation artifact. Wall Motion Normal left ventricular wall motion. Nuclear Conclusion ECG Findings: positive for ischemia Clinical Findings: [place] [address] CARDIAC NUCLEAR IMAGING REPORT Name: RYLEYTOPHERPHONG TOHRNE [id number] Admission: 11/16/20 Attend Phys: Srinivasan Velez Discharge: Date of : 49 Date of Service: 11/17/20 1551 Report #: [id number] Nuclear Findings: negative for ischemia Exercise Capacity: not assessed Left Ventricular Function: normal Risk Study: moderate The patient had symptoms and EKG changes possibly suggestive of ischemia. This is in light of underlying left ventricular hypertrophy and a hypertensive response to exercise. Perfusion images were suggestive of but not definitive for possible inferior wall ischemia. This was most notable on post stress supine images but not noted on post-rest prone images. This would be considered a moderate risk study. <Conclusion> The baseline twelve-lead EKG shows sinus rhythm. There is voltage criteria for left ventricular hypertrophy. ST segments appear relatively normal. EKGs obtained during and post Lexiscan walking protocol show sinus rhythm as sinus tachycardia with [address] segment depressions noted in the inferolateral leads that persisted 8 minutes into recovery. <ELECTRONICALLY SIGNED> By: Zeyad Luna MD, FACC 11/17/20 1551 1551 1551 Zeyad Luna MD, FACC /INF
== END ==
LOC: M.NUC 05-14 16:38
PROVIDERS: ATTEND Internal Medicine
DX: I25.10 Atherosclerotic heart disease of native coronary artery without angina pectoris (principal); E11.9 Type 2 diabetes mellitus without complications; E78.00 Pure hypercholesterolemia, unspecified; Z95.5 Presence of coronary angioplasty implant and graft

== ENCOUNTER 2020-12-18 08:11 | Observation (INO) | payer OTHER ==
[~2020-12-18] VITALS: Ht 180.3 cm; Wt 83.9 kg
--- NOTE | ~2020-12-18 | H ---
[address] [address] HISTORY AND PHYSICAL Name: HEDRICKTOPHER THORNE Room: [address] Melanie Alvarez#: [id number] Admission: 12/18/20 Attend Phys: Miguel Temple MD, Discharge: 12/19/20 Date of : 49 Report #: [id number] THIS REPORT FOR: cc: Neal Castaneda Bradley L. DO [facility],Medical Records Staff ~ Please refer to the History and Physical performed in the physician's office. By: 1200Medical Records Staff YANIV /KRYSTLE
[2020-12-18 09:11] LABS: HEMATOCRIT 41.6 % (42.0-52.0); HEMOGLOBIN 14.8 gm/dL (14.0-18.0); MCH 33.6 pg (26.0-34.0); MCHC 35.5 g/dL (28.0-37.0); MCV 94.7 fL (80.0-100.0); MPV 7.3 fl. (7.2-11.1); RBC 4.39 mil/uL (4.50-6.00); RDW-CV 13.6 % (10.5-14.5); WBC 6.2 thou/uL (4.0-11.0)
[2020-12-18 09:25] LABS: APTT 24.3 Seconds (25.0-31.3); PROTIME 10.9 Seconds (9.20-11.50)
[2020-12-18 09:37] VITALS: BP 140/78
[2020-12-18 09:37] LABS: ANION GAP 9 mmol/L (7-16); BUN 17 mg/dL (7-18); CALCIUM 9.2 mg/dL (8.5-10.1); CHLORIDE 102 mmol/L (98-107); CO2 28 mmol/L (21-32); GLUCOSE 154 mg/dL (70-99); POTASSIUM 3.7 mmol/L (3.5-5.1); SODIUM 139 mmol/L (136-145)
[2020-12-18 09:42] LABS: ALKALINE PHOSPHATASE 68 U/L (46-116); SGOT 40 U/L (15-37); SGPT 58 U/L (30-65); TOTAL BILIRUBIN 1.1 mg/dL (<0.1-1.0); TOTAL PROTEIN 7.7 g/dL (6.4-8.2)
[2020-12-18 11:11] LABS: CHOLESTEROL 108 mg/dL (<200); HDL CHOLESTEROL 73 mg/dL (>40); LDL CHOLESTEROL 14 mg/dL (<100); TC:HDL 1.5 Ratio (Not establshd); TRIGLYCERIDE 109 mg/dL (<150); VLDL 22 mg/dL (<40)
[2020-12-18 11:12] LABS: SERUM ASSESSMENT Clear
[2020-12-18 14:45] VITALS: BP 140/78
[2020-12-18 16:26] VITALS: BP 139/59
--- NOTE | 2020-12-18 16:30 | CARD ---
[address] [address] CARDIAC CATH REPORT Name: TOPHER HEDRICK Room: [address] M.R.#: [id number] Admission: 12/18/20 Attend Phys: Miguel Temple MD, Discharge: Date of : 49 Report #: [id number] THIS REPORT FOR: cc: Neal Castaneda Bradley L. DO Holkins, John M. MD [facility] ~ APPROVED REPORT Study performed: 12/18/2020 10:53:08 Patient Details Patient Status: Out-Patient Room #: The patient is a 75 year-old male Event Personnel Miguel Temple Museum Registrar, Ron CoelhoIS Scrub, Darrel Schreiber LEAD QUALITY CONTROL TECHNICIAN Monitor, Karen Buenrostro RN Business Ethics Professor, Ayanna Ann RTAgustin Monitor Procedures Performed Art Access - L femoral artery, Left Heart Cath w/or w/o Coronaries LHC, DARRIUS Place w/wo Plasty Single RCA , Hemostasis w/ Angioseal Indication Positive stress test Risk Factors Hypercholesterolemia, Hypertension Previous Procedures/Diagnoses Previous PCI Admission/Lab Medications/Medications given during procedure Angiomax IV 13 ml, Angiomax Drip IV 30 ml per hr, Effient PO 60 mg Procedure Narrative The patient was brought electively to the Cardiac Catheterization Laboratory and was prepped and draped in a sterile manner. The left femoral was infiltrated with 2% Lidocaine subcutaneous anesthesia. IV conscious sedation was used throughout procedure with appropriate monitoring and was performed in the presence of a registered nurse who was an independent trained [place] [address] CARDIAC CATH REPORT Name: HEDRICKTOPHERPHONG THORNE Room: [address] Melanie Alvarez#: [id number] Admission: 12/18/20 Attend Phys: Miguel Temple MD, Discharge: Date of : 49 Report #: [id number] performing the procedure. A 6fr Ultimum sheath was inserted into the left femoral artery. Coronary angiography was performed using coronary diagnostic catheters. The right coronary system was accessed and visualized with a 6F JR4 catheter. The left coronary system was accessed and visualized with a 6F JL4 catheter. The left ventricle was accessed and visualized with a 6F Pigtail catheter. Left ventricular/Aortic Valve gradient assessed via catheter pullback. Left ventriculogram was performed in NARANJO projection. Pre-demployment femoral angiogram was performed . Closure device was deployed with a 6 Fr Angioseal STS. The patient tolerated the procedure well and there were no complications associated with the procedure. There was no hematoma. Intraoperative Conscious Sedation Sedation start time: 11:09 Case end Time: 12:11 Fentanyl 100 mcg Versed 4 mg Fluoro Time: 18.8 minutes Dose: DAP [id number] cGycm2 2028 mGy Contrast Type and Amount: Visipaque 300 ml Diagnostic Cath Left Main 0% narrowing LAD 40% mid LAD narrowing Circumflex 50% narrowing the proximal portion of the nondominant circumflex Right Coronary Diffuse calcification with 90% mid right coronary in-stent restenosis Left Ventriculography The left ventricle is normal in size with normal contractility. The left ventricular ejection fraction is estimated to be 65%. Left ventricular wall motion abnormalities are not present. There is no mitral insufficiency. Hemodynamics The aortic pressure is 137/47 mmHg with a mean of 88 mmHg. The left ventricular pressure is 142/0 mmHg with a mean of mmHg. The left ventricular end diastolic pressure is 12 mmHg. PCI Technique Lesion Anticoagulation was achieved with Angiomax. Patient was preloaded with Angiomax IV 13 ml. Percutaneous coronary intervention was performed on the mid right coronary artery. [place] [address] CARDIAC CATH REPORT Name: TOPHER HEDRICK Room: [address] M..#: [id number] Admission: 12/18/20 Attend Phys: Miguel Temple MD, Discharge: Date of : 49 Report #: [id number] to intervention was 90% with DEL 3 flow. A 6FR XBRCA Guide Catheter was used to engage the right ostium. A ProwaterFlex 180CM and BMW 190CM Interventional Guidewire was used to cross the lesion. BALLOON DILATION A Balloon catheter Mini Trek RX 1.5 X 8 was inserted and inflated up to 16.00atm for 6seconds. Additional Inflation: 20.00atm for 13seconds. Additional Inflation: 20.00atm for 7seconds. A TREK 2.25 x 8 balloon catheter was inserted and inflated up to 20 avila for 13 seconds; 20 avila for 6 seconds; and 20 avila for 14 seconds. A TREK 2.75 x 12 balloon catheter was inserted and inflated up to 18 avila for 8 seconds; and 20 avila for 10 seconds. A NC TREK 2.75 x 8 balloon catheter was inserted and inflated up to 22 avila for 10 seconds; 24 avila for 8 seconds; and 24 avila for 9 seconds. STENT DEPLOYMENT A drug-eluting stent Bruce RX Stent 2.63M70qp was inserted and inflated up to 18.00atm for 9seconds. Additional Inflation: 22.00atm for 8seconds. POST STENT DEPLOYMENT BALLOON DILATION A Balloon catheter NC Euphora 3.0 x 8 was inserted and inflated up to 18.00atm for 9seconds. Additional Inflation: 22.00atm for 7seconds. Final angiography reveals 10 % stenosis with DEL 3 flow. COMMENTS The PCI was technically complex by virtue of marked calcification throughout the right coronary artery this required significant lesion preparation with the use of a cali wire for advancement of sequential balloons and ultimately the drug-eluting stent deployed in the mid right coronary artery. Conclusion 1. Significant coronary artery disease characterized by the following: A 90% heavily calcified in-stent restenosis of the mid right coronary artery B 40% narrowing the midportion of the prominent LAD system C 50% proximal circumflex narrowing, [place] [address] CARDIAC CATH REPORT Name: TOPHER HEDRICK Room: [address] M.R.#: [id number] Admission: 12/18/20 Attend Phys: Miguel Temple MD, Discharge: Date of : 49 Report #: [id number] vessel 2. Normal left-ventricular systolic function, estimate ejection fraction 65% 3 normal left-sided hemodynamic study 4. Successful PCI with deployment of a drug-eluting stent at the site of 90% mid right coronary in-stent restenosis with 10% residual narrowing and DEL-3 flow to the distal vessel Recommendations Cardiac Risk Reduction Program Medications Administered Clopidogrel Diagnostic Cath Approved by: Miguel Temple MD Date/Time: 12/18/2020 16:28:44 <ELECTRONICALLY SIGNED> By: Miguel Temple MD, [facility] 12/18/20 1629 1629 1629Miguel Temple MD, FAC /INF
--- NOTE | 2020-12-18 16:53 | EKG ---
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1945 Requested By: Miguel Temple Order Number: [id number] Jaren MD: Miguel Temple Measurements Intervals [place] Rate: 64 P: 55 [place]: 175 QRS: 76 QRSD: 107 T: 73 QT: 435 QTc: 449 Interpretive Statements Sinus rhythm Probable left ventricular hypertrophy Baseline wander in lead(s) II,III,aVL,aVF Compared to ECG 09/29/2018 03:28:48 No significant changes Electronically Signed On 12-18-2020 16:53:35 CDT by Miguel Temple [email or web address] <ELECTRONICALLY SIGNED> By: Miguel Temple MD, [facility] 12/18/20 1653 9 9 Miguel Temple MD, FAC /EPI
--- NOTE | 2020-12-18 16:56 | EKG ---
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1945 Requested By: Miguel Temple Order Number: [id number] [place] MD: Miguel Temple Measurements Intervals [place] Rate: 62 P: 42 [place]: 184 QRS: 72 QRSD: 102 T: 77 QT: 425 QTc: 432 Interpretive Statements Sinus rhythm Probable left atrial enlargement Left ventricular hypertrophy Baseline wander in lead(s) II,III,aVF Compared to ECG 12/18/2020 09:30:41 No significant changes Electronically Signed On 12-18-2020 16:56:35 CDT by Miguel Temple [email or web address] <ELECTRONICALLY SIGNED> By: Miguel Temple MD, [facility] 12/18/20 1656 1326 1326 Miguel Temple MD, FAC /EPI
--- NOTE | 2020-12-18 19:22 | NUR ---
RECEIVED REPORT FORM RAEANN PEREZ. PT ARRIVED ON UNIT AROUND 1700. ASSUMED CARE. ADMIT DONE IN CHART. PT UPADLIB NOW. SITE LEFT GROIN. C/D/I. IV INTACT LEFT FOREARM. HEART MONITOR ATTACHED AT SR. VS STABLE. HOURLY ROUNDING PERFORMED. CALL LIGHT WITH IN REACH. WILL CONTINUE TO MONITOR.
[2020-12-18 20:00] VITALS: BP 135/67
--- NOTE | 2020-12-18 21:00 | NUR ---
OFFERED TO CALL DR FOR INSULIN FOR PT. PT DECLINED INSULIN.
[2020-12-18 23:54] VITALS: BP 149/76
[2020-12-19 03:58] VITALS: BP 137/79
[2020-12-19 04:41] LABS: HEMATOCRIT 37.7 % (42.0-52.0); HEMOGLOBIN 13.5 gm/dL (14.0-18.0); MCH 34.4 pg (26.0-34.0); MCHC 35.7 g/dL (28.0-37.0); MCV 96.2 fL (80.0-100.0); MPV 7.5 fl. (7.2-11.1); RBC 3.92 mil/uL (4.50-6.00); RDW-CV 13.8 % (10.5-14.5); WBC 5.9 thou/uL (4.0-11.0)
[2020-12-19 05:05] LABS: ALBUMIN 3.4 g/dL (3.4-5.0); CALCIUM 8.8 mg/dL (8.5-10.1); POTASSIUM 3.8 mmol/L (3.5-5.1); TOTAL BILIRUBIN 0.9 mg/dL (<0.1-1.0); TOTAL PROTEIN 6.7 g/dL (6.4-8.2); TROPONIN-I LEVEL 0.24 ng/mL (<0.06)
[2020-12-19 09:00] VITALS: BP 134/68
[2020-12-19 11:52] VITALS: BP 126/65
--- NOTE | 2020-12-19 12:58 | EKG ---
[place] [address] ELECTROCARDIOGRAM REPORT Name: TOPHER HEDRICK Room: [address] M.R.#: [id number] Admission: 12/18/20 Attend Phys: Srinivasan Velez Discharge: Date of : 49 Date of Service: 12/19/20 1146 Report #: [id number] THIS REPORT FOR: //name// 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 : 1945 Requested By: Miguel Temple Order Number: [id number] Jaren MD: Shoaib Khalil Measurements Intervals [place] Rate: 65 P: 35 [place]: 188 QRS: 79 QRSD: 103 T: 75 QT: 402 QTc: 418 Interpretive Statements Sinus rhythm Probable left ventricular hypertrophy Compared to ECG 12/18/2020 13:26:42 No significant changes Electronically Signed On 12-19-2020 12:58:23 CDT by Shoaib Khalil [email or web address] <ELECTRONICALLY SIGNED> By: Shoaib Khalil MD, [facility] 12/19/20 1258 1146 1146 Shoaib Khalil MD, [facility] /EPI
[2020-12-19 14:01] VITALS: BP 126/65
--- NOTE | 2020-12-19 14:27 | NUR ---
PATIENT HAS REMAINED A&OX4, PLEASANT AND COOPERATIVE WITH CARES THIS SHIFT. PATIENT GIVEN DISCHARGE INSTRUCTIONS AND PRESCRIPTION FOR PRASUGREL, WELL INFORMATION SHEETS ON NEW PRESCRIPTION. IV REMOVED. PATIENT DENIES PAIN/QUESTIONS/CONCERNS PRIOR TO DISCHARGE. PATIENT LEFT UNIT WITH PERSONAL BELONGINGS VIA W/C, ACCOMPANIED BY AND NURSING STAFF AT APPROX. 1423.
[2020-12-19 14:31] VITALS: BP 126/65
--- NOTE | 2020-12-20 12:36 | D ---
[address] [address] DISCHARGE SUMMARY Name: TOPHER HEDRICK Room: [address] Melanie Alvarez#: [id number] Admission: 12/18/20 Attend Phys: Miguel Temple MD, Discharge: 12/19/20 Date of : 49 Report #: [id number] THIS REPORT FOR: cc: Neal Castaneda Bradley L. DO Holkins, John M. MD [facility] ~ DOC #: [id number] Miguel Temple MD [facility] DATE OF DISCHARGE: 12/19/2020 FINAL DISCHARGE DIAGNOSES: 1. Abnormal nuclear stress test. 2. Unstable angina. 3. Type 2 diabetes. 4. Hypercholesterolemia. 5. Hypertension. PROCEDURES: 12/18/2020 -- left heart catheterization, left ventriculography, selective coronary arteriography and percutaneous coronary intervention with deployment of drug-eluting stent in the mid right coronary artery. HOSPITAL COURSE: The patient is a very pleasant 75-year-old male who presented with increasing episodes of chest discomfort compatible with unstable angina. Recent nuclear stress test revealed inducible inferior ischemia. He has underlying hypertension, diabetes, and hypercholesterolemia. 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 There was 40% mid LAD narrowing with mild narrowings of the circumflex. LV function was normal with an estimated ejection fraction of 65%. He underwent PCI with deployment of drug-eluting stent in the mid right coronary artery after significant lesion preparation with 10% residual narrowing following final deployment of a 2.75 x 12 mm Rickman drug-eluting stent in the mid right coronary artery. He did well post-procedurally and ambulated in the hallways without difficulty. There was good hemostasis at the left femoral site of catheterization. LABORATORY DATA: On 12/19 revealed normal renal function parameters. Troponin мария inconsequentially to 0.24. DISCHARGE MEDICATIONS: He was discharged home on the following medications: Amlodipine 10 mg daily, losartan and hydrochlorothiazide 100/12.5 one daily, [place] [address] DISCHARGE SUMMARY Name: RYLEYTOPHER THORNE Room: [address] M.R.#: [id number] Admission: 12/18/20 Attend Phys: Miguel Temple MD, Discharge: 12/19/20 Date of : 49 Report #: [id number] p.r.n. sublingual nitroglycerin, atorvastatin 20 mg daily, metformin 500 mg b.i.d. to be resumed on 12/20/2020, coenzyme Q 100 mg daily, omeprazole 20 mg daily, fiber source daily, Feldene 20 mg daily, prasugrel 10 mg daily. I will plan to see the patient in followup in 4 weeks. Therefore, he was discharged home in stable condition on the aforementioned medications with followup as related above. Miguel Temple MD [facility] <ELECTRONICALLY SIGNED> By: Miguel Temple MD, [facility] 12/20/20 1236 0953 1033Jodanya Temple MD, [facility] /nt
--- NOTE | 2020-12-21 10:16 | EKG ---
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 12/21/20 1015 0349 0349 Shoaib Khalil MD, [facility] /EPI
== END 2020-12-19 14:23 | disposition home or self-care (01) ==
LOC: M.CL 08:11 → M.TBA-CV 12:25 → M.2W 17:14
PROVIDERS: ADMIT Internal Medicine; ATTEND Internal Medicine
DX: I20.0 Unstable angina (principal); Z20.822 Contact with and (suspected) exposure to COVID-19; I10 Essential (primary) hypertension; E11.9 Type 2 diabetes mellitus without complications; E78.00 Pure hypercholesterolemia, unspecified; Z88.5 Allergy status to narcotic agent; Z88.6 Allergy status to analgesic agent